=== PATIENT | female | born 1995 | race Caucasian/White ===

== ENCOUNTER → 2016-11-08 | Outpatient (CLI) | payer OTHER ==
[2016-11-08 17:13] LABS: ABSOLUTE EOSINOPHILS # (AUTO) 0.1 10^3/uL (0.0-0.6); ABSOLUTE LYMPHOCYTES (AUTO) 2.8 10^3/uL (0.5-4.7); ABSOLUTE MONOCYTES (AUTO) 0.5 10^3/uL (0.1-1.4); ABSOLUTE NEUT (AUTO) 4.3 10^3/uL (1.7-8.2); BASOPHILS % (AUTO) 0.5 % (0-2); EOSINOPHILS % (AUTO) 1.2 % (0-6); HEMATOCRIT 36.6 % (36.0-47.0); HEMOGLOBIN 12.5 g/dL (12.0-15.5); HGB HCT DIFFERENCE 0.9; LYMPHOCYTES % (AUTO) 36.5 % (13-45); MEAN CORPUSCULAR HEMOGLOBIN 32.8 pg (27.0-33.4); MEAN CORPUSCULAR HGB CONC 34.1 g/dL (32.0-36.0); MEAN CORPUSCULAR VOLUME 96 fl (80-97); MONOCYTES % (AUTO) 6.3 % (3-13); RED CELL DISTRIBUTION WIDTH 13.5 % (11.5-14.0); SEGMENTED NEUTROPHILS % (AUTO) 55.5 % (42-78); WHITE BLOOD COUNT 7.8 10^3/uL (4.0-10.5)
[2016-11-08 17:42] LABS: ALANINE AMINOTRANSFERASE 23 U/L (9-52); ALBUMIN 4.4 g/dL (3.5-5.0); ALKALINE PHOSPHATASE 116 U/L (38-126); AMYLASE 55 U/L (30-110); ANION GAP 12 (5-19); ASPARTATE AMINO TRANSFERASE 20 U/L (14-36); BILIRUBIN,DIRECT 0.3 mg/dL (0.0-0.4); BILIRUBIN,TOTAL 0.7 mg/dL (0.2-1.3); BLOOD UREA NITROGEN 9 mg/dL (7-20); CALCIUM 9.2 mg/dL (8.4-10.2); CARBON DIOXIDE 27 mmol/L (22-30); CHLORIDE 101 mmol/L (98-107); CREATININE RESULT 0.68 mg/dL (0.52-1.25); GLUCOSE 94 mg/dL (75-110); LIPASE 57.8 U/L (23-300); POTASSIUM 3.9 mmol/L (3.6-5.0); SODIUM 140.1 mmol/L (137-145); TOTAL PROTEIN 7.5 g/dL (6.3-8.2)
== END ==
LOC: OD 15:51
PROVIDERS: ATTEND Specialist
DX: R10.9 Unspecified abdominal pain (principal)
CPT/HCPCS: 36415; 80053; 82150; 83690; 85025

== ENCOUNTER 2016-11-16 08:42 | Day surgery (SDC) | payer OTHER ==
--- NOTE | 2016-11-09 14:42 | HISTORY AND PHYSICAL E ---
History and Physical NAME: LEONIE BOBO : 1995 AGE: 21Y ADMITTED: 11/16/2016 ROOM: HISTORY: A 21-year-old female, new patient, just presented to us with abdominal pain, bloating. She had recent cholecystectomy. She moved from [place]. She was diagnosed with IBS and diarrhea. PAST SURGICAL HISTORY: Cholecystectomy. MEDICATIONS: 1. Prozac. 2. [place] for pain. 3. Bentyl. 4. control. 5. Synthroid. SOCIAL HISTORY: She does not smoke, does not drink. FAMILY HISTORY: Father had cancer, primary unknown. Mom is alive with history of gallbladder disease. REVIEW OF SYSTEMS: ENDOCRINE: Hypothyroid. CARDIAC: Negative. GASTROINTESTINAL: IBS, diarrhea, abdominal pain, bloating. NEUROPSYCH: Negative. PHYSICAL EXAMINATION: GENERAL: Patient 21 years old. VITAL SIGNS: Blood pressure is 110/80, pulse 80, respirations 18, temp is 98. Weight 188. HEAD, EYES, EARS, NOSE, THROAT: Normal. NECK: Supple. LUNGS: Clear. ABDOMEN: Soft. NEUROLOGIC: Exam negative. CONCLUSION: 1. Irritable bowel syndrome. 2. Nonspecific abdominal pain. PLAN: Upper scope, scheduled 11/16. DICTATING PHYSICIAN: TEZ VALERO M.D. [id number] [id number] PHY#: [id number] ID: [id number] JOB#: [id number] ACCT: [id number] cc:TEZ VALERO M.D. >
[~2016-11-16 08:42] MED LIST: EPINEPHRINE INJ 1 MG/10 ML DISP.SYRIN ONE; FENTANYL CITRATE INJ/PF 100 MCG/2 ML AMPUL ONE; FLUMAZENIL INJ 0.5 MG/5 ML VIAL IV ONE; GLYCOPYRROLATE INJ 0.4 MG/2 ML VIAL ONE; NALOXONE HCL INJ/PF 0.4 MG/1 ML SDV ONE; ONDANSETRON HCL INJ/PF 4 MG/2 ML SDV ONE
[2016-11-16] MEDS: MIDAZOLAM 2 MG/2 ML INJ ONE ×3 (09:12→09:18)
--- NOTE | 2016-11-16 10:29 | OPERATIVE REPORT E ---
Operative Report NAME: LEONIE BOBO : 1995 AGE: 21Y DATE OF SURGERY: 11/16/2016 ROOM: PREOPERATIVE DIAGNOSIS: 1. Diarrhea. 2. Abdominal pain. POSTOPERATIVE DIAGNOSIS: 1. Esophagitis, mild. 2. Gastritis, mild. 3. Duodenitis, mild. PROCEDURE: 1. Esophagoscopy. 2. Gastroscopy. 3. Duodenoscopy. SURGEON: TEZ VALERO M.D. ANESTHESIA: Versed 5, fentanyl 100. TISSUE REMOVED OR ALTERED: 1. Gastric biopsy x2. H. pylori workup. 2. Duodenal biopsy x5. Celiac disease consideration. PROCEDURE: After adequate sedation, baby scope passed under guided vision, no difficulties. Esophagoscopy: Junction at 35, mild esophagitis. Gastroscopy: Mild gastritis, biopsy obtained, H. pylori. Duodenoscopy: The bulb shows no ulcers, biopsy obtained. Descending duodenum shows no ulcers, mild duodenitis, biopsy obtained, celiac disease consideration. CONCLUSION: 1. Junction at 35. 2. Mild esophagitis. 3. Gastroscopy: Mild gastritis. 4. Duodenoscopy: Mild duodenitis. 5. Pending biopsy results, H. pylori, celiac disease. DISCHARGE PLAN: 1. We will do lab study for H. pylori, celiac disease, check amylase, lipase, chemistry profile, and CBC. 2. Soft diet. 3. Hold aspirin. 4. Awaiting lab and biopsy results. DICTATING PHYSICIAN: TEZ VALERO M.D. [id number] [id number] PHY#: [id number] ID: [id number] JOB#: [id number] ACCT: [id number] cc:[facility], INTERNAL MEDICINE TEZ NEVAREZ M.D. >
--- NOTE | 2016-11-16 10:38 | DISCHARGE SUMMARY E ---
Discharge Summary NAME: LEONIE BOBO : 1995 AGE: 21Y ADMITTED: 11/16/2016 DISCHARGED: 11/16/2016 HISTORY: A 21-year-old female presented with abdominal pain and diarrhea. She has a remote history of IBS diarrhea. She did have a cholecystectomy. She did have nonspecific abdominal pain and diarrhea. Upper scope shows no evidence of ulcers, no evidence of malignancy. PLAN: 1. Awaiting biopsy results, lab studies. 2. We will do serology for celiac disease, irritable bowel disease, and H. pylori. 3. Patient to see us in the office in the next few days. MEDICATIONS: 1. Bentyl. 2. [place]. 3. Prozac. 4. Synthroid. 5. Tramadol. DICTATING PHYSICIAN: TEZ VALERO M.D. 5075M 1000 PHY#: [id number] ID: [id number] JOB#: [id number] ACCT: [id number] cc:[facility], INTERNAL MEDICINE TEZ NEVAREZ M.D. >
[2016-11-16 11:20] VITALS: BP 107/78
== END 2016-11-16 10:40 | disposition home or self-care (01) ==
LOC: END 08:42
PROVIDERS: ATTEND Specialist
PROC: 0DB98ZX Excision of Duodenum, Via Natural or Artificial Opening Endoscopic, Diagnostic (ICD-10-PCS; 2016-11-16)
PROC: 0DB68ZX Excision of Stomach, Via Natural or Artificial Opening Endoscopic, Diagnostic (ICD-10-PCS; principal; 2016-11-16 09:00)
DX: K20.9 Esophagitis, unspecified (principal); K31.7 Polyp of stomach and duodenum; K29.80 Duodenitis without bleeding; E03.9 Hypothyroidism, unspecified; K58.9 Irritable bowel syndrome, unspecified; Z79.3 Long term (current) use of hormonal contraceptives; Z79.899 Other long term (current) drug therapy
CPT/HCPCS: 43239; 88342 ×2; 88305 ×2; J2250; J3010; J0171; J2310; J2405; J3490

== ENCOUNTER → 2016-11-23 | Outpatient (CLI) | payer OTHER ==
[2016-11-30 07:12] LABS: 5-HIAA URINE 24HR 2.5 mg/24 hr (0.0-14.9)
== END ==
LOC: OD 15:33
PROVIDERS: ATTEND Specialist
DX: R10.9 Unspecified abdominal pain (principal)
CPT/HCPCS: 36415; 83497; 84703; 86160

== ENCOUNTER → 2016-11-28 | Outpatient (CLI) | payer OTHER ==
--- NOTE | 2016-11-28 16:12 | RADIOLOGY REPORT (SQ) ---
EXAM DESCRIPTION: SMALL BOWEL SERIES COMPLETED DATE/TIME: 11/28/2016 1:13 pm REASON FOR STUDY: RUQ ABD SWELLING MASS AND LUMP (R19.01) R19.01 RIGHT UPPER QUADRANT ABDOMINAL SWE LLING, MASS AND LUM COMPARISON: None. FLUOROSCOPY TIME: 7 seconds 4 fluoroscopic spot images saved to PACS. Multiple KUB films for small-bowel follow-through LIMITATIONS: None. PROCEDURE: Initial industrial sales representative image of abdomen acquired, followed by administration of oral contrast. Se rial radiographic images acquired. Fluoroscopic images recorded of the terminal ileum and other carlos cated areas. All images stored on PACS. FINDINGS: TONGUE PRESSER KUB: Clips right upper quadrant post cholecystectomy. Large amount of stool in the ascending colon. Bowel gas pattern otherwise unremarkable. Mild bilateral L5-S1 facet arthropathy. STOMACH: No significant reflux. Normal distention without abnormality. DUODENUM: Normal mucosal pattern with adequate distention. No displacement or obstruction. JEJUNUM: Normal mucosal pattern. No dilatation, segmentation, strictures or masses. ILEUM: Normal mucosal pattern. No dilatation, segmentation, strictures or masses. TERMINAL ILEUM AND ILEO-CECAL VALVE: Normal mucosal pattern without "cobble-stoning" or stricture. N ormal compression. PROXIMAL COLON: Incompletely imaged. No abnormality. OTHER: No other significant finding. IMPRESSION: NORMAL SMALL BOWEL EXAM. COMMENT: Quality ID [id number]: Final reports for procedures using fluoroscopy that document radiation exp osure indices, or exposure time and number of fluorographic images (if radiation exposure indices are not available) TECHNICAL DOCUMENTATION: JOB ID: [id number] [employer]- All Rights Reserved
== END ==
LOC: RAD 08:48
PROVIDERS: ATTEND Specialist
DX: R19.01 Right upper quadrant abdominal swelling, mass and lump (principal)
CPT/HCPCS: 74250

== ENCOUNTER 2017-02-28 08:53 | Day surgery (SDC) | payer OTHER ==
--- NOTE | 2017-02-21 15:41 | HISTORY AND PHYSICAL E ---
History and Physical NAME: LEONIE BOBO : 1995 AGE: 22Y ADMITTED: 02/28/2017 ROOM: REASON FOR ADMISSION: For colonoscopy. MEDICATIONS: 1. Prozac. 2. Synthroid. 3. [place]. 4. Protonix. 5. Imodium. 6. Bentyl. HISTORY AND PHYSICAL: Patient presented with abdominal pain. She is being admitted for colonoscopy. She is being seen by [facility]. Patient has severe abdominal pain, etiology undetermined. The patient did have cholecystectomy. She does not smoke, does not drink. She is . She has diagnosis of diarrhea and irritable bowel syndrome. REVIEW OF SYSTEMS: HEENT: Unremarkable. CARDIAC: Unremarkable. ENDOCRINE: Hypothyroid. GI: IBS, diarrhea, abdominal pain, bloating. ONCOLOGY/HEMATOLOGY: Negative. NEUROLOGY: Negative. FAMILY HISTORY: Father ; he had cancer. Mom is alive. PHYSICAL EXAMINATION: VITAL SIGNS: A 21-year-old female. Blood pressure is 110/80, pulse 50, respirations 18, temp is 98. HEENT: Normal. NECK: Supple. LUNGS: Clear. ABDOMEN: Soft. NEUROLOGIC: Exam negative. DIAGNOSTICS: Labs show chemistry within normal limits. Amylase and lipase normal. CBC: White count 7.8, hemoglobin 12. Patient did have upper endoscopy on 11/16, presenting with abdominal pain and diarrhea. She did have cholecystectomy. Upper endoscopy was done regarding abdominal pain. The patient presented at this time with abdominal pain and diarrhea. She is for colonoscopy. C1 esterase inhibitor is normal. The patient's urine 5-hydroxyindoleacetic acid is 2.5; that is within normal limits. test is negative. CONCLUSIONS: 1. Persistent abdominal pain, etiology undetermined. 2. Diarrhea, etiology undetermined. PLAN: Colonoscopy with biopsy to be done in the OR with anesthesia standby, admit 02/28/2017. DICTATING PHYSICIAN: TEZ VALERO M.D. 1209M [id number] PHY#: [id number] ID: [id number] JOB#: [id number] ACCT: [id number] cc:TEZ VALERO M.D. >
--- NOTE | 2017-02-26 14:52 | HISTORY AND PHYSICAL E ---
History and Physical NAME: LEONIE BOBO : 1995 AGE: 22Y ADMITTED: 02/28/2017 ROOM: Admit sometime next week for colonoscopy in the OR. CHIEF COMPLAINT: Left lower quadrant abdominal pain and diarrhea. HISTORY: Patient does have history of cholecystectomy. I saw the patient back in October of this year when she presented with diarrhea and abdominal pain. Underwent upper endoscopy and we did gastric biopsy and duodenal biopsy. The patient did have mild gastritis and mild esophagitis. We proceeded with a small bowel series which was normal. She has normal small bowel. The patient has right upper quadrant abdominal swelling and mass. Again, a small bowel series was negative. The patient continues to have pain. We sent her to pain specialist and she is being managed by the pain specialist. We did C1 esterase inhibitor which was normal. She did have nonspecific abdominal pain, irritable bowel syndrome. SURGERIES: Cholecystectomy. SOCIAL HISTORY: She does not smoke and does not drink. FAMILY HISTORY: Her father had cancer, primary unknown. Mom is alive with history of gallbladder disease. REVIEW OF SYSTEMS: ENDOCRINE: Hypothyroid. GASTROINTESTINAL: Abdominal pain, bloating, diarrhea, IBS. NEUROLOGIC/PSYCHIATRIC: Negative. PHYSICAL EXAMINATION: VITAL SIGNS: Blood pressure 110/80, pulse 80, respirations 18, temp is 98. HEAD, EYES, EARS, NOSE, THROAT: Normal. ABDOMEN: Soft. NEUROLOGIC: Negative. MEDICATIONS: 1. [place]. 2. Prozac. 3. Bentyl. 4. Synthroid. 5. Neurontin. 6. Imodium. Her last , amylase, lipase normal. Liver function is normal. She is on Protonix. Patient does have history of hypothyroid. Presents with abdominal pain and diarrhea. CONCLUSION: Persistent abdominal pain and diarrhea, cholecystectomy. Etiology undetermined. PLAN: She did have recent DIRECTOR DECISION SUPPORT evaluation and was told her endometriosis is not causing her pain. We will proceed with colonoscopy in the OR. Scheduled for sometime next week in the OR. DICTATING PHYSICIAN: TEZ VALERO M.D. [id number] [id number] PHY#: [id number] ID: [id number] JOB#: [id number] ACCT: [id number] cc:[facility] TEZ VALERO M.D. >
[~2017-02-28 08:53] MED LIST changes: -EPINEPHRINE INJ 1 MG/10 ML DISP.SYRIN ONE; -FENTANYL CITRATE INJ/PF 100 MCG/2 ML AMPUL ONE; -FLUMAZENIL INJ 0.5 MG/5 ML VIAL IV ONE; -GLYCOPYRROLATE INJ 0.4 MG/2 ML VIAL ONE; +LACTATED RINGERS 1000 ML IV PRN; -NALOXONE HCL INJ/PF 0.4 MG/1 ML SDV ONE; -ONDANSETRON HCL INJ/PF 4 MG/2 ML SDV ONE
[2017-02-28] MEDS ORDERED: LIDOCAINE 2% INJ-PF (20 MG/ML) 10 ML AMPUL ONE (10:52)
[2017-02-28] MEDS ORDERED: ONDANSETRON HCL INJ/PF 4 MG/2 ML SDV ONE (10:52)
[2017-02-28] MEDS ORDERED: PROPOFOL INJ 200 MG/20 ML VIAL IV ONE (10:53)
[2017-02-28] MEDS ORDERED: PROMETHAZINE HCL INJ 25 MG/1 ML VIAL IV PRN ×3 (11:19→12:23)
[2017-02-28] MEDS ORDERED: DIPHENHYDRAMINE HCL 50 MG/ML VIAL IV PRN (11:19)
[2017-02-28] MEDS ORDERED: FENTANYL CITRATE INJ/PF 100 MCG/2 ML AMPUL IV PRN ×3 (11:19)
[2017-02-28] MEDS ORDERED: ONDANSETRON HCL INJ/PF 4 MG/2 ML SDV IV PRN (11:19)
[2017-02-28] MEDS ORDERED: MEPERIDINE HCL/PF INJ 25 MG/1 ML DISP.SYRIN IV PRN (11:19)
[2017-02-28] MEDS ORDERED: ACETAMINOPHEN 325 MG TABLET PO PRN (12:22)
[2017-02-28] MEDS ORDERED: LIDOCAINE 2% VISCOUS SOLN 20 ML UDCUP PO PRN (12:22)
[2017-02-28] MEDS ORDERED: SIMETHICONE 80 MG TAB.CHEW PO PRN (12:23)
[2017-02-28 13:22] VITALS: BP 114/75
[2017-02-28 13:36] LABS: ABSOLUTE EOSINOPHILS # (AUTO) 0.1 10^3/uL (0.0-0.6); ABSOLUTE LYMPHOCYTES (AUTO) 2.5 10^3/uL (0.5-4.7); ABSOLUTE MONOCYTES (AUTO) 0.3 10^3/uL (0.1-1.4); ABSOLUTE NEUT (AUTO) 3.2 10^3/uL (1.7-8.2); BASOPHILS % (AUTO) 0.7 % (0-2); EOSINOPHILS % (AUTO) 0.9 % (0-6); HEMOGLOBIN 12.1 g/dL (12.0-15.5); HGB HCT DIFFERENCE 1.3; LYMPHOCYTES % (AUTO) 41.2 % (13-45); MEAN CORPUSCULAR HEMOGLOBIN 33.9 pg (27.0-33.4); MEAN CORPUSCULAR HGB CONC 34.7 g/dL (32.0-36.0); MEAN CORPUSCULAR VOLUME 98 fl (80-97); MONOCYTES % (AUTO) 4.8 % (3-13); RED BLOOD COUNT 3.58 10^6/uL (3.72-5.28); RED CELL DISTRIBUTION WIDTH 13.8 % (11.5-14.0); SEGMENTED NEUTROPHILS % (AUTO) 52.4 % (42-78); WHITE BLOOD COUNT 6.1 10^3/uL (4.0-10.5)
[2017-02-28 14:19] LABS: ERYTHROCYTE SEDIMENTATION RATE 29 mm/hr (0-20)
--- NOTE | 2017-03-01 12:28 | OPERATIVE REPORT E ---
Operative Report NAME: LEONIE BOBO : 1995 AGE: 22Y DATE OF SURGERY: 02/28/2017 ROOM: PREOPERATIVE DIAGNOSIS: Abdominal pain. POSTOPERATIVE DIAGNOSES: 1. External hemorrhoids. 2. Proctitis. PROCEDURE: Colonoscopy. SURGEON: TEZ VALERO M.D. ANESTHESIA: Done in the OR with anesthesia standby. TISSUE REMOVED OR ALTERED: Biopsy, right colon. FINDINGS: External hemorrhoids. Mild proctitis. Moderate amount of stool in the sigmoid and descending colon, some of it solid, some of it liquid. DESCRIPTION OF PROCEDURE: Rectal exam: External hemorrhoids, mild. Proctitis, mild. Sigmoid colon normal mucosa, inadequate prep. Descending colon normal, inadequate prep. Transverse colon normal. Ascending colon normal. Cecum shows full liquid stool, unable to intubate the ileum because of poor prep. Scope withdrawn cecum, ascending, transverse, descending, sigmoid all the way to the rectum. The patient tolerated the procedure well and was discharged to her room in stable condition. CONCLUSIONS: 1. External hemorrhoids. 2. Proctitis. 3. No gross evidence of inflammatory bowel disease, awaiting biopsy. DICTATING PHYSICIAN: TEZ VALERO M.D. 1209M 1159 PHY#: [id number] ID: [id number] JOB#: [id number] ACCT: [id number] cc:[facility] TEZ MATHEW M.D. >
--- NOTE | 2017-03-01 12:32 | DISCHARGE SUMMARY E ---
Discharge Summary NAME: LEONIE BOBO : 1995 AGE: 22Y ADMITTED: 02/28/2017 DISCHARGED: 02/28/2017 DIAGNOSES: 1. Abdominal pain, etiology undetermined. 2. External hemorrhoids. 3. Proctitis. HISTORY/HOSPITAL COURSE: The patient is a 22-year-old female with severe abdominal pain. The patient is being followed by Pain Management because of persistence of her abdominal pain, possibility of underlying colorectal lesion or possibility of underlying inflammatory bowel disease was considered, and the patient underwent colonoscopy in the OR with Anesthesia standby. Her colonoscopy was successful to the cecum. I did not see gross abnormality consistent with inflammatory bowel disease. Right colon biopsy obtained, consideration for microscopic colitis. DISCHARGE PLAN: Will do serology for IBD, chemistries, CBC, and follow up the patient as an outpatient for further evaluation. FINAL DIAGNOSES: 1. External hemorrhoids. 2. Proctitis. 3. Chronic abdominal pain, etiology undetermined. DICTATING PHYSICIAN: TEZ VALERO M.D. 1819M [id number] PHY#: [id number] ID: [id number] JOB#: [id number] ACCT: [id number] cc:TEZ VALERO M.D. >
== END 2017-02-28 13:25 | disposition home or self-care (01) ==
LOC: OROUT 08:53
PROVIDERS: ATTEND Specialist
PROC: 0DBF8ZX Excision of Right Large Intestine, Via Natural or Artificial Opening Endoscopic, Diagnostic (ICD-10-PCS; principal; 2017-02-28 11:00)
DX: K64.4 Residual hemorrhoidal skin tags (principal); K62.89 Other specified diseases of anus and rectum; E07.9 Disorder of thyroid, unspecified; R10.9 Unspecified abdominal pain; Z79.899 Other long term (current) drug therapy
CPT/HCPCS: 45380; 86256; 36415; 85025; 85652; 81025; 88305 ×2; J2405; J2704; J3490; 810